=== PATIENT | female | born 1930 | race Caucasian/White ===

== ENCOUNTER → 2017-07-05 | Outpatient (CLI) | payer MEDICARE, BC, OTHER ==
--- NOTE | 2017-07-05 11:06 | RAD ---
DATE: July 05, 2017 EXAM: DIGITAL SCREEN BILAT W/CAD HISTORY: History of left breast cancer treated with lumpectomy. COMPARISON: 2014 and 2016. This study was interpreted with the benefit of Computerized Aided Detection (CAD). FINDINGS: Mammographic study is difficult to position on the left side due to a broken left arm suffered 2 months ago. The left breast is smaller due to the lumpectomy. The breast parenchyma is scattered and mildly dense. There are no dominant suspicious masses, suspicious microcalcifications or evidence of architectural distortion. IMPRESSION: No mammographic indicators for malignancy. BI-RADS CATEGORY: 2 BENIGN FINDING RECOMMENDED FOLLOW-UP: 12M 12 MONTH FOLLOW-UP PQRS compliance statement: Patient information was entered into a reminder system with a target due date July 06, 2018 for the next mammogram. Mammography is a sensitive method for finding small breast cancers, but it does not detect them all and is not a substitute for careful clinical examination. A negative mammogram does not negate a clinically suspicious finding and should not result in delay in biopsying a clinically suspicious abnormality. "Our facility is accredited by the [employer] Mammography Program." The patient's breast density may affect the ability of mammography to detect breast cancer. There are 4 categories of breast density, A, B, C and D. Breast density A means that most of the breast tissue is replaced with adipose tissue and therefore is not dense. Breast density B means that the breast tissue is mildly dense and scattered. Breast density C means that the breast tissue is heterogeneously dense. Breast density D means that the breast tissue is very dense. Breast densities especially C and D may decrease the sensitivity of mammography to detect breast cancer. Therefore, the patient may benefit from 3-D breast mammography (3D breast tomography) as a part of their screening mammogram. Insurance may or may not pay for this additional imaging. The patient's breast density based on today's mammogram is category B.
== END | disposition home or self-care (01) ==
LOC: MAMMO 09:19
PROVIDERS: ATTEND Physician Assistant Medical
DX: Z12.31 Encounter for screening mammogram for malignant neoplasm of breast (principal); Z85.3 Personal history of malignant neoplasm of breast
CPT/HCPCS: 77067

== ENCOUNTER → 2017-10-11 | Outpatient (CLI) | payer MEDICARE, BC, OTHER ==
--- NOTE | 2017-10-12 10:09 | RAD ---
Chest, 2 views, 10/11/2017: HISTORY: Cough and congestion No previous chest radiographs are available at this time for comparison purposes. The heart is mildly enlarged. A coronary artery stent is projected over the left side of the heart. The aorta is tortuous. The pulmonary vascularity is normal. There appear to be scattered parenchymal scars. There is mild streaky atelectasis/infiltrate in the left base. There is discoid atelectasis or scarring medially in the right base. A gas collection projected over the lower chest posteriorly on the lateral view raises the possibility of a small hiatal hernia. No pleural fluid is seen. There are moderate scattered degenerative changes in the spine. IMPRESSION: 1. Mild cardiomegaly and aortic atherosclerosis. 2. Mild left basilar atelectasis/infiltrate. 3. Mild right basilar discoid atelectasis and/or scarring. Electronically signed by: Heron Ahmadi MD (10/12/2017 10:06 AM) [facility]
== END | disposition home or self-care (01) ==
LOC: RAD 18:01
PROVIDERS: ATTEND Nurse Practitioner Family
DX: I70.0 Atherosclerosis of aorta (principal); J98.11 Atelectasis; Z95.5 Presence of coronary angioplasty implant and graft; Z85.3 Personal history of malignant neoplasm of breast
CPT/HCPCS: 71046

== ENCOUNTER → 2017-11-08 | Outpatient (CLI) | payer MEDICARE, BC, OTHER ==
--- NOTE | 2017-11-08 16:59 | RAD ---
Chest radiograph 11/08/2017 12:32 PM INDICATION: Pneumonia COMPARISON: Chest radiograph October 11, 2017 TECHNIQUE: Frontal and lateral views of the chest are provided. FINDINGS: The cardiomediastinal silhouette is within normal limits. There are no pleural effusions. There is no pulmonary vascular congestion. There is no pneumothorax. There is improved aeration of the left lung base. There is minimal strandy density at the left lung base suggestive of subsegmental atelectasis versus scarring. Mild pulmonary emphysema. No significant osseous abnormality is identified. IMPRESSION: COPD changes with improved aeration of the left lower lobe. Residual strandy density may represent subsegmental atelectasis versus scarring. No masslike consolidation is visualized. Electronically signed by: Ratna Galvez MD (11/08/2017 4:56 PM) [id number]
== END | disposition home or self-care (01) ==
LOC: PMG 12:18
PROVIDERS: ATTEND Nurse Practitioner Family
DX: J44.0 Chronic obstructive pulmonary disease with (acute) lower respiratory infection (principal)
CPT/HCPCS: 71046

== ENCOUNTER → 2018-04-19 | Outpatient (CLI) | payer MEDICARE, BC, OTHER ==
--- NOTE | 2018-04-19 16:40 | RAD ---
Bilateral lower extremity arterial Doppler ultrasound HISTORY: LEG PAIN, PEDAL EDEMA TECHNIQUE: Color Doppler, grayscale and duplex analysis performed of the right and left lower extremity arterial structures, from the common femoral artery through the runoff vessels. COMPARISON: None are available All velocity measurements are in centimeters per second. Right leg: Biphasic waveforms throughout. There is an increase in velocity of the proximal posterior tibial artery and 116 cm/s, compared with the popliteal artery at 54 cm/s, could indicate a proximal stenosis. No evidence of occlusive disease. Mild plaque and calcification is seen. Left leg: Biphasic waveforms throughout. No evidence of occlusion. Elevation of the posterior tibial artery peak systolic velocity, 80 proximally and 109 distally, relative to the popliteal artery velocity of 58, could indicate a stenosis. Mild calcification and plaque is seen. IMPRESSION: Atherosclerotic disease. Question is raised of stenosis at the level of the knee, bilaterally. Electronically signed by: Blake Stiles MD (04/19/2018 4:36 PM) [id number]
== END | disposition home or self-care (01) ==
LOC: US 13:48
PROVIDERS: ATTEND Physician Assistant Medical
DX: I70.202 Unspecified atherosclerosis of native arteries of extremities, left leg (principal); I70.201 Unspecified atherosclerosis of native arteries of extremities, right leg; R60.9 Edema, unspecified
CPT/HCPCS: 93925

== ENCOUNTER → 2018-07-06 | Outpatient (CLI) | payer MEDICARE, BC, OTHER ==
--- NOTE | 2018-07-07 09:49 | RAD ---
DATE: 07/06/2017 EXAM: DIGITAL SCREEN BILAT W/CAD HISTORY: Screening Mammogram COMPARISON: Mammogram 07/05/2017, 06/29/2016, 06/24/2015 This study was interpreted with the benefit of Computerized Aided Detection (CAD). The breast parenchyma shows scattered fibroglandular densities. Breast parenchyma level B. FINDINGS: Bilateral digital 2-D CC and MLO views. Limited evaluation on the cc view due to distorted breast from prior lumpectomy. No new suspicious mass, calcification or architectural distortion either breast. No significant change from prior examination. There are 2 right breast biopsy clips in similar position. 9 bilateral vascular calcifications. There are a few punctate scattered calcifications of the right breast also consider benign. IMPRESSION: No mammographic evidence of malignancy. Recommend routine screening mammogram in 12 months. BI-RADS CATEGORY: 2 BENIGN FINDING(S) RECOMMENDED FOLLOW-UP: 12M 12 MONTH FOLLOW-UP PQRS compliance statement: Patient information was entered into a reminder system with a target due date for the next mammogram. Mammography is a sensitive method for finding small breast cancers, but it does not detect them all and is not a substitute for careful clinical examination. A negative mammogram does not negate a clinically suspicious finding and should not result in delay in biopsying a clinically suspicious abnormality. "Our facility is accredited by the [employer] Mammography Program."
== END | disposition home or self-care (01) ==
LOC: MAMMO 15:00
PROVIDERS: ATTEND Physician Assistant Medical
DX: Z12.31 Encounter for screening mammogram for malignant neoplasm of breast (principal)
CPT/HCPCS: 77067

== ENCOUNTER → 2018-08-03 | Outpatient (CLI) | payer MEDICARE, BC, OTHER ==
--- NOTE | 2018-08-03 14:08 | RAD ---
LEFT BREAST SONOGRAM Indications: History of left breast cancer treated with lumpectomy in 1999. Patient has swelling in the outer left breast and axilla last 2 months. Recent negative mammogram on July 06, 2018. Findings: High-resolution sonography of the outer aspect of the left breast in the area of clinical concern as indicated by the patient was performed. No focal sonographic abnormality is seen. Sonography of the left axillary region was performed which demonstrates a normal appearing lymph node measuring 10 mm in size. IMPRESSION: No sonographic abnormality is evident. BI-RADS Category 1 negative
== END | disposition home or self-care (01) ==
LOC: US 12:49
PROVIDERS: ATTEND Physician Assistant Medical
DX: N63.21 Unspecified lump in the left breast, upper outer quadrant (principal); Z85.3 Personal history of malignant neoplasm of breast
CPT/HCPCS: 76641

== ENCOUNTER → 2019-07-18 | Outpatient (CLI) | payer MEDICARE, BC, OTHER ==
--- NOTE | 2019-07-20 11:32 | RAD ---
DATE: July 18, 2019 EXAM: DIGITAL SCREEN BILAT W/CAD HISTORY: History of left breast cancer treated with lumpectomy. COMPARISON: 2017 and 2018 This study was interpreted with the benefit of Computerized Aided Detection (CAD). FINDINGS: Breast Density: HETERO The breast parenchyma is heterogenously dense, which could reduce sensitivity of mammography. Breast parenchyma level C.. Postoperative changes of the left breast related to lumpectomy are evident. Very little left breast tissue is present. As a result, the technologist was unable to get a good CC projection. No obvious new abnormality is seen on the left side in the MLO projection. Biopsy clips are present on the right side. No new abnormality is seen on the right side. IMPRESSION: Stable mammogram. No mammographic indicators for new or recurrent malignancy. BI-RADS CATEGORY: 2 BENIGN FINDING RECOMMENDED FOLLOW-UP: 12M 12 MONTH FOLLOW-UP PQRS compliance statement: Patient information was entered into a reminder system with a target due date July 19, 2020 for the next mammogram. Mammography is a sensitive method for finding small breast cancers, but it does not detect them all and is not a substitute for careful clinical examination. A negative mammogram does not negate a clinically suspicious finding and should not result in delay in biopsying a clinically suspicious abnormality. "Our facility is accredited by the [employer] Mammography Program." The patient's breast density may affect the ability of mammography to detect breast cancer. There are 4 categories of breast density, A, B, C and D. Breast density A means that most of the breast tissue is replaced with adipose tissue and therefore is not dense. Breast density B means that the breast tissue is mildly dense and scattered. Breast density C means that the breast tissue is heterogeneously dense. Breast density D means that the breast tissue is very dense. Breast densities especially C and D may decrease the sensitivity of mammography to detect breast cancer. Therefore, the patient may benefit from 3-D breast mammography (3D breast tomography) as a part of their screening mammogram. Insurance may or may not pay for this additional imaging. The patient's breast density based on today's mammogram is category C.
== END | disposition home or self-care (01) ==
LOC: MAMMO 11:14
PROVIDERS: ATTEND Physician Assistant Medical
DX: Z12.31 Encounter for screening mammogram for malignant neoplasm of breast (principal); Z85.3 Personal history of malignant neoplasm of breast
CPT/HCPCS: 77067

== ENCOUNTER → 2020-07-24 | Outpatient (CLI) | payer MEDICARE, BC, OTHER ==
--- NOTE | 2020-07-29 08:48 | RAD ---
DATE: 07/24/2020 11:43 AM EXAM: MAMMO EDIL SCREENING BILATERAL HISTORY: 89-year-old woman presents for screening. Personal history of left lumpectomy with radiation and reconstruction in 2000. COMPARISON: 07/18/2019 Bilateral CC and MLO views of the breasts were performed. Bilateral breast tomosynthesis was performed in MLO projections. Right CC edil synthesis images also obtained but the left CC tomosynthesis view could not be obtained due to postsurgical breast tissue variation.. This study was interpreted with the benefit of Computerized Aided Detection (CAD). FINDINGS: Breast Density: SCATTERED The breast parenchyma shows scattered fibroglandular densities. Breast parenchyma level B No suspicious masses, microcalcifications or architectural distortion is present to suggest malignancy in either breast. The visualized axillae are unremarkable. IMPRESSION: No mammographic evidence of malignancy. BI-RADS CATEGORY: 1 NEGATIVE RECOMMENDED FOLLOW-UP: 12M 12 MONTH FOLLOW-UP Annual screening mammography is recommended, unless clinically indicated sooner based on symptoms or change in physical exam. PQRS compliance statement: Patient information was entered into a reminder system with a target due date for the next mammogram. Mammography is a sensitive method for finding small breast cancers, but it does not detect them all and is not a substitute for careful clinical examination. A negative mammogram does not negate a clinically suspicious finding and should not result in delay in biopsying a clinically suspicious abnormality. "Our facility is accredited by the [employer] Mammography Program."
== END ==
LOC: MAMMO 11:00
PROVIDERS: ATTEND Physician Assistant Medical
DX: Z12.31 Encounter for screening mammogram for malignant neoplasm of breast (principal)
CPT/HCPCS: 77063; 77067

== ENCOUNTER 2021-03-04 18:51 | Inpatient (IN) | payer MEDICARE, BC, OTHER ==
[~2021-03-04] VITALS: Ht 162.6 cm; Wt 67.0 kg
[2021-03-04] MEDS ORDERED: MORPHINE SULFATE 4 MG/ML DISP.SYRIN. IV ONE (19:45)
[2021-03-04] MEDS ORDERED: ONDANSETRON PF 4 MG/2 ML VIAL. IVP ONE (19:45)
[2021-03-04] MEDS ORDERED: IV DEXTROSE 5% - 0.9 % NACL 1,000 ML IV ONE (19:45)
--- NOTE | 2021-03-04 19:48 | PHYS DOC ---
Adult General Chief Complaint Chief Complaint: HIP PAIN HPI HPI Patient is an 89-year-old female who presents to the emergency department with a chief complaint of fall, at home in her closet just before coming into the emergency department after tripping over something and landing on her right hip. States it hurts, 8 out of 10, sharp in nature. Denies any other injuries. Denies any headache, change in vision, neck pain, chest pain, shortness of breath, abdominal pain, nausea, vomiting. Denies any numbness/weakness/tingling. Does endorse some mild tenderness around her bellybutton and a dry cough today. Denies any recent traumas, illnesses, fevers, cold/Covid/flu symptoms or known ill contacts. Review of Systems Review of Systems Review of systems otherwise unremarkable except noted in HPI Physical Exam Physical Exam Constitutional: Well developed, well nourished, no acute distress, non-toxic appearance. [] HENT: Normocephalic, atraumatic, bilateral external ears normal, oropharynx moist, no oral exudates, nose normal. [] Eyes: conjunctiva normal, no discharge. [] Neck: Normal range of motion, no tenderness, supple, no stridor. [] Cardiovascular:Heart rate regular rhythm, no murmur [] Lungs & Thorax: Bilateral breath sounds clear to auscultation [] Abdomen:soft, mild tenderness around umbilicus, no masses, no pulsatile masses. [] Skin: Warm, dry, no erythema, no rash. [] Back: No tenderness, no CVA tenderness. [] Extremities: Pain on range of motion of right hip with no obvious bruising, swelling or deformities, neurovascular exam intact, Neurologic: Alert and oriented X 3, normal motor function, normal sensory function, no focal deficits noted. [] Psychologic: Affect normal, judgement normal, mood normal. [] EKG EKG [] Radiology/Procedures Radiology/Procedures [] Heart Score C/O Chest Pain: No Risk Factors: Risk Factors: DM, Current or recent (<one month) smoker, HTN, HLP, family history of CAD, obesity. Risk Scores: Risk Factors: DM, Current or recent (<one month) smoker, HTN, HLP, family history of CAD, obesity. Course & Med Decision Making Course & Med Decision Making Patient is an 89-year-old female who presents with right hip pain after falling in the closet at home Vital signs notable for hypertension, and O2 sats around 88-90. Placed on the monitor with IV access established. O2 with nasal cannula placed at 2 L. Given pain and nausea medicine. Made n.p.o. Has not eaten in 8 hours. Started on IV fluid resuscitation. Laboratory analysis not concerning. CT with right-sided femoral neck fracture. Neurovascular exam intact. Pain controlled. Discussed patient with Dr. Palmer at [place] and Dr. Nolasco who both excepted to [facility] for continued evaluation and treatment. Patient and family grateful, verbalized understanding and agreed with plan of transfer and admission. Given the fact that there are no beds currently at [place], until tomorrow afternoon and Dr. Palmer said he would be able to take her to the OR until approximately 6 PM tomorrow she was admitted to [facility] for continued evaluation and treatment until bed opening at [facility] [place]. [] Dragon Disclaimer Dragon Disclaimer This electronic medical record was generated, in whole or in part, using a voice recognition dictation system. Departure Departure: Impression: Primary Impression: Fall Additional Impressions: Hip pain Cough Abdominal pain Hip fracture Disposition: 02 SHORT TERM HOSPITAL Admitting Physician: Lizbet Nolasco Condition: STABLE Referrals: BHAVANI NATHAN (PCP) Problem Qualifiers AMPARO FALL MD Mar 04, 2021 19:48
[2021-03-04 20:07] LABS: HEMATOCRIT 43.4 % (36.0-47.0); HEMOGLOBIN 14.5 g/dL (12.0-15.5); RED BLOOD COUNT 4.66 x10^6/uL (3.50-5.40); RED CELL DISTRIBUTION WIDTH 13.2 % (11.5-14.5)
--- NOTE | 2021-03-04 20:51 | RAD ---
XR CHEST 1V History: Reason: Fall, cough, low O2 / Spl. Instructions: / History: Comparison: November 08, 2017 Findings: Hyperinflation with emphysematous changes. No pleural effusion. No pneumothorax. Postop changes left axilla. Glenohumeral DJD. Remodeling of the left humeral head, unchanged. Unchanged heart size. Calci fied right upper lung pulmonary nodule, unchanged likely related to prior granulomatous disease. Impression: 1. Hyperinflation with emphysematous changes. No new consolidation. Electronically signed by: Cliff Quinteros DO (03/04/2021 8:48 PM) [facility]
--- NOTE | 2021-03-04 20:53 | RAD ---
Exam: CT of abdomen and pelvis without contrast INDICATION: Fall, umbilical pain TECHNIQUE: Sequential axial images through the abdomen and pelvis obtained without IV contrast. Sagit toney and coronal reformatted images were reconstructed from the axial data and reviewed. Exposure: One or more of the following in the visualized dose reduction techniques were utilized for this examination: 1. Automated exposure control 2. Adjustment of the MA and/or KV according to patient size 3. Use of iterative of reconstructive technique Comparisons: None FINDINGS: Heart size is normal. No pericardial effusion. Strandy opacities at dependent portion lungs likely re presenting atelectasis. No pleural effusion. Evaluation of solid organs limited secondary to noncontrast technique. Liver, spleen, pancreas, gallbladder and adrenals are unremarkable. No perinephric inflammation or hydronephrosis. Nonobstructing left renal calculi are noted. No ureter al calculi are seen. Bladder is partially distended and not well evaluated. Uterus is nonenlarged. No abnormal adnexal mas s. Moderate amount of stool is noted in the colon. Appendix is normal. No free intra-abdominal air or fl uid. No obstruction. Abdominal aorta has a normal course and caliber. No enlarged abdominal lymph nodes are identified. There is an impacted angulated right femoral neck fracture. No suspicious osseous lesions IMPRESSION: 1. Impacted angulated right femoral neck fracture. 2. Moderate-sized hiatal hernia. 3. Nonobstructing left renal calculi. 4. Moderate amount stool in the colon, correlate for constipation. Electronically signed by: Yasmin Ricardo MD (03/04/2021 8:51 PM) [facility]
[2021-03-04 21:32] LABS: CALCIUM 9.5 mg/dL (8.5-10.1); CREATININE 0.9 mg/dL (0.6-1.0); GFR 59.1; POTASSIUM 4.1 mmol/L (3.5-5.1)
--- NOTE | 2021-03-04 21:46 | RAD ---
XR HIP (WITH OR WITHOUT PELVIS) 1 VIEW History: Reason: fall, bilateral hip pain, unable to move right hip / Spl. Instructions: / History: Technique: AP view the pelvis and 2 views of bilateral hips. Comparison: February 12, 2018 Findings: Acute mildly displaced right femoral neck fracture. No dislocation. Lower lumbar spondylosis. Mild bi lateral hip DJD. Mild pubic symphysis DJD. Impression: 1. Acute mildly displaced right femoral neck fracture. Electronically signed by: Cliff Quinteros DO (03/04/2021 9:43 PM) [facility]
[2021-03-05] MEDS ORDERED: ACETAMINOPHEN 325 MG TABLET PO PRN (00:15)
[2021-03-05] MEDS ORDERED: IV DEXTROSE 5% - 0.9 % NACL 1,000 ML IV ONE (00:15)
[2021-03-05] MEDS ORDERED: ONDANSETRON PF 4 MG/2 ML VIAL. IVP PRN (00:15)
[2021-03-05] MEDS ORDERED: ACET325T9 PO (04:36)
[2021-03-05] MEDS ORDERED: CELE-20 PO (04:36)
[2021-03-05] MEDS ORDERED: TOLT4CAP PO (04:36)
[2021-03-05] MEDS ORDERED: ATOR20TA58 PO (04:36)
[2021-03-05] MEDS ORDERED: DONE5TAB7 PO (04:36)
[2021-03-05] MEDS ORDERED: ASPI-630 PO (04:36)
[2021-03-05] MEDS ORDERED: GABA-586 PO (04:36)
[2021-03-05] MEDS ORDERED: [UNRECOGNIZED DRUG - CODE] PO (04:36)
[2021-03-05] MEDS ORDERED: DOCU-109 PO (04:36)
[2021-03-05] MEDS ORDERED: CALC500T54 PO (04:36)
[2021-03-05] MEDS ORDERED: METO-239 PO (04:36)
[2021-03-05] MEDS ORDERED: CARB1TAB22 PO (04:36)
[2021-03-05] MEDS ORDERED: MULT-658 PO (04:36)
--- NOTE | 2021-03-05 05:43 | NUR ---
PT ADMITTED TO [facility] VIA EMS ACCOMPANIED BY NURSING POLARITY TESTER. PT ASSISTED X4 FROM GURNEY TO BED. PT IS ALERT TO SELF ONLY AND IS POOR HISTORIAN. HOME MEDICATION LIST RECEIVED FROM FAMILY MEMBER IN ED. MEDICATIONS ARE RECONCILED. PER SANDERS PROTOCOL, 16F SANDERS CATHETER WAS PLACED FOR UNOPERATED RIGHT HIP FRACTURE. PT TOLERATED PROCEDURE WELL. PT IS UNABLE TO EXPRESS PAIN ON NUMERIC SCALED BUT STATED "MY HIP IS VERY TENDER." PT ALSO APPEARED TENSE WHEN ADLS WHERE DONE. PRN MORPHINE GIVEN INDICATED. BED ALARM IN PLACE, WILL CONTINUE TO MONITOR.
[2021-03-05] MEDS: MORPHINE SULFATE 2 MG/ML DISP.SYRIN. IVP PRN ×2 (05:54→11:06)
[2021-03-05 06:36] VITALS: BP 143/77
--- NOTE | 2021-03-05 08:58 | HP ---
ADMIT DATE: 03/05/2021 ATTENDING PHYSICIAN: Dr. Mojica. CHIEF COMPLAINT: Right hip pain. HISTORY OF PRESENT ILLNESS: The patient is an 89-year-old female who fell at home. No loss of consciousness. She was evaluated in the ED. X-rays demonstrated an acute right femoral neck fracture, minimal displacement. Orthopedic Service was called at [place]. They did not have a bed available. She was admitted to [facility] for overnight observation, with eventual transfer to [place] the next day, which is today. She is demented and cannot give much history. She is awake. She is not in any acute respiratory distress. PAST MEDICAL HISTORY: Significant for Parkinson's disease, profound dementia, hyperlipidemia and essential hypertension. She is not on any anticoagulation. CURRENT MEDICATIONS: Include aspirin, Tylenol, Lipitor, calcium, Sinemet, Celebrex, docusate, Aricept, famotidine, Neurontin, metoprolol, multivitamin, and Detrol. ALLERGIES: She has no known drug allergies. SOCIAL HISTORY: Nonsmoker, nondrinker. FAMILY HISTORY: Unobtainable. REVIEW OF SYSTEMS: Unobtainable due to the patient's confusion. PHYSICAL EXAMINATION: GENERAL: When I saw her, this is a pleasant elderly female who is very confused. She has no idea what is going on. She looks very dazed. VITAL SIGNS: Initial vital signs showed a blood pressure of 143/77, temperature 98.5 degrees Fahrenheit, pulse is 90 and regular, oxygen saturation 92% on 4 liters nasal cannula. HEENT: Head is without trauma. Pupils are reactive. Sclerae nonicteric. Oropharynx clear. NECK: Supple. No bruits. CARDIOVASCULAR: Regular heart tones. LUNGS: Good breath sounds. ABDOMEN: Soft. No guarding or rebound tenderness. EXTREMITIES: Showed point tenderness over the right lateral hip. Wooten catheter in place. SKIN: Warm and dry. NEUROLOGIC: Profoundly confused. PERTINENT LABORATORY STUDIES: Hemoglobin is 14.5 g/dL, white count 9000. Electrolytes within normal range. Creatinine 0.9 mg/dL. Nonfasting blood sugar 146. ASSESSMENT: 1. An 89-year-old female fell at home sustaining a right femoral neck fracture. 2. Profound dementia. 3. Hypertension. 4. Parkinson's disease. PLAN: 1. Admit to the inpatient unit here. 2. N.p.o. 3. Wooten catheter in place. 4. Home meds reviewed. 5. Eventual transfer to [place] when a bed opens up for ORIF. I will try to contact the family. ARTI/DANITA DR: Christine TID: [id number] CC: MATIAS SONI
[2021-03-05 10:50] VITALS: BP 101/79
--- NOTE | 2021-03-05 11:59 | DS ---
DATE OF DISCHARGE: 03/05/2021 ATTENDING PHYSICIAN: Dr. Mojica. FINAL DISCHARGE DIAGNOSES: 1. Fall with acute fracture of the right femoral neck. 2. Profound dementia. 3. Essential hypertension. 4. Parkinson's disease. HISTORY AND PHYSICAL: The patient is an 89-year-old female who fell at home. No loss of consciousness. Workup in the ED last night showed an acute right femoral neck fracture, minimal displacement. Orthopedic Service at [place] was called. They did not have a bed available. Therefore, she was admitted to [facility] overnight with eventual transfer to [place] the next day, which is today. Dr. David has been notified and will accept the patient when a bed is available. PAST MEDICAL HISTORY: Significant for Parkinson's disease, profound dementia and hypertension. She is not on any anticoagulation. I did take the liberty of stopping her aspirin and her Celebrex. PHYSICAL EXAMINATION: Please see my dictated note. PERTINENT LABORATORY AND X-RAY STUDIES: Admission hemoglobin was 14.5 g/dL, white count was 9000. Electrolytes within normal range. Creatinine is 0.9 mg percent. Nonfasting blood sugar 146 mg/dL. X-rays of the hip and pelvis showed acute mildly displaced right femoral neck fracture. Chest x-ray showed hyperinflation with emphysematous changes, no new infiltrates or decompensation is seen. COURSE IN THE HOSPITAL: The patient was admitted. She was kept n.p.o., gentle IV hydration, pain control. She remained very confused. Arrangements were then made for the patient to be transferred by ambulance to go to [facility] for eventual open reduction and internal fixation. Her prognosis is guarded. She is a FULL CODE per advanced directives. The patient is then discharged from our hospital in stable condition with explicit drug and followup care. ARTI/DANITA DR: ARTI/lyndsey TID: [id number] CC: JOSÉ MIGUEL DAVID MD, MATIAS SONI
--- NOTE | 2021-03-05 12:17 | NUR ---
PATIENT IS IN A BED AWAKE , CONFUSED AND RESTLESS, NON COMPLIANT WITH SUPPLEMENTAL O2, KEEPS TAKING NC OFF, PULLING ON SANDERS. DR LAZO NOTIFIED, ORDER FOR ATIVAN PRN OBTAINED.
--- NOTE | 2021-03-05 13:49 | NUR ---
PATIENT IS TRANSFERRING TO [facility] FOR ORTHO CONSULT, HIGHER LEVEL OF CARE. REPORT GIVEN TO GYPSY PRADO. PATIENT'S FAMILY NOTIFIED. EMS CALLED FOR TRANSFER.
== END 2021-03-05 14:20 | disposition short-term general hospital (02) | DRG 536 ==
LOC: ER 18:51 → 1 SOUTH 03-05 00:52
PROVIDERS: ADMIT Internal Medicine; ATTEND Internal Medicine
DX: S72.001A Fracture of unspecified part of neck of right femur, initial encounter for closed fracture (principal); E78.5 Hyperlipidemia, unspecified; F02.80 Dementia in other diseases classified elsewhere, unspecified severity, without behavioral disturbance, psychotic disturbance, mood disturbance, and anxiety; G20 Parkinson's disease; I10 Essential (primary) hypertension; W01.0XXA Fall on same level from slipping, tripping and stumbling without subsequent striking against object, initial encounter; Z20.822 Contact with and (suspected) exposure to COVID-19; Y92.009 Unspecified place in unspecified non-institutional (private) residence as the place of occurrence of the external cause; Y93.89 Activity, other specified; Y99.8 Other external cause status
CPT/HCPCS: 36415; 71045; 73521; 74176; 80048; 85027; 96361; 96374; J2270; J2405; J7042; U0003; 99285-25

== ENCOUNTER 2021-04-23 11:00 | Emergency (ER) | payer MEDICARE, BC, OTHER ==
[~2021-04-23] VITALS: Ht 162.6 cm; Wt 73.1 kg
[~2021-04-23 11:00] MED LIST: ACET325T9 PO; ASPI-630 PO; ATOR20TA58 PO; CALC500T54 PO; CARB1TAB22 PO; CELE-20 PO; DOCU-109 PO; DONE5TAB7 PO; GABA-586 PO; METO-239 PO; MULT-658 PO; TOLT4CAP PO; [UNRECOGNIZED DRUG - CODE] PO
--- NOTE | 2021-04-23 11:23 | PHYS DOC ---
Past History Additional Past Medical Histor: CANCER-breast Past Surgical History: Knee Replacement, Other Additional Past Surgical Histo: right wrist, partial knee replacement Alcohol Use: None Adult General Chief Complaint Chief Complaint: HYPOTENSION HPI HPI Patient is an 89-year-old female presenting via POV for hypotension. Patient was at home participating in home PT status post recent hip surgery when she was found to be little more lethargic than usual in her wheelchair without any recent falls or trauma. Physical therapist checked blood pressure several times without any readings greater than 70 systolic. Patient lives at home with granddaughter who provides [id number] care in addition to supplemental home health and physical therapist. Joint decision among all to call primary care physician to discuss what to do as patient's blood pressure did not increase with attempted activity and so, it was advised she present to our ER for evaluation. On arrival, patient has no complaints. She has no significant major changes in health or medication recently. She has no lightheadedness, dizziness, fever, chest pain, ripping or tearing in torso, shortness of breath, abdominal pain, nausea vomit diarrhea, dysuria or other concerning symptoms Review of Systems Review of Systems Fourteen body systems of review of systems have been reviewed. See HPI for pertinent positives and negative responses, other olmedo all other systems are negative, non-pertinent or non-contributory Allergies Allergies Allergies Coded Allergies Type Severity Reaction Last Updated Verified No Known Drug Allergies 04/23/21 No Physical Exam Physical Exam Constitutional: Well developed, well nourished, no acute distress, non-toxic shine earance. HENT: Normocephalic, atraumatic, bilateral external ears normal, oropharynx moist, no oral exudates, nose normal. Eyes: PERRLA, EOMI, conjunctiva normal, no discharge. Neck: Normal range of motion, no tenderness, supple, no stridor. Cardiovascular: Heart rate regular, sinus rhythm, no murmurs rubs or gallops Lungs & Thorax: Bilateral breath sounds clear to auscultation Abdomen: Bowel sounds normal, soft, no tenderness, no masses, no pulsatile masses. Nonsurgical abdomen, no peritoneal signs Skin: Warm, dry, no erythema, no rash. Back: No tenderness, no CVA tenderness. Extremities: No tenderness, no cyanosis, no clubbing, ROM intact, no edema. Neurologic: Alert and oriented X 3, grossly normal motor & sensory function, no focal deficits noted. Psychologic: Affect normal, judgement normal, mood normal. Current Patient Data Vital Signs Vital Signs Date Time Temp Pulse Resp B/P (MAP) Pulse Ox O2 Delivery O2 Flow Rate FiO2 04/23/21 11:11 97.7 63 22 169/85 (113) 95 Room Air EKG EKG EKG ordered and interpreted by myself at 1151 as sinus rhythm at 60 bpm, unremarkable intervals, left axis deviation, no obvious ischemic findings, no STEMI Radiology/Procedures Radiology/Procedures EXAM: Chest, single view. HISTORY: Hypotension. COMPARISON: 03/04/2021 FINDINGS: A frontal view of the chest is obtained. There is no infiltrate, pleural effusion or pneumothorax. The heart is normal in size. There is a coronary artery stent. There are left axillary clips. There is a chronic fracture deformity involving the proximal left humerus. IMPRESSION: No acute pulmonary finding. Electronically signed by: Marilee Herzog MD (04/23/2021 11:59 AM) [id number] Heart Score C/O Chest Pain: No HEART Score for Chest Pain: HEART Score for Chest Pain Response (Comments) Value History Slighlty/Non-Suspicious 0 ECG Normal 0 Age > 65 2 Risk Factors 1 or 2 Risk Factors 1 Troponin < Normal Limit 0 Total 3 Risk Factors: Risk Factors: DM, Current or recent (<one month) smoker, HTN, HLP, family history of CAD, obesity. Risk Scores: Risk Factors: DM, Current or recent (<one month) smoker, HTN, HLP, family history of CAD, obesity. Course & Med Decision Making Course & Med Decision Making Airway patent, breathing unlabored, IV access and vitals obtained concerning for slight hypertension HPI physical exam and comprehensive ER work-up obtained and grossly nonconcerning Patient's blood pressure monitored throughout entirety of ER visit and hypertensive throughout. I disclosed all findings with patient and daughter at bedside with good understanding by both, no indication for any further emergent or surgical intervention or need for hospital transfer Patient has follow-up later today with outpatient primary care physician, I feel this is appropriate to review recent episode of hypotension and care going forward. Strict return precautions were discussed with patient and daughter at bedside with good understanding by both. All questions and concerns addressed prior to ER departure Dragon Disclaimer Dragon Disclaimer This electronic medical record was generated, in whole or in part, using a voice recognition dictation system. Departure Departure: Impression: Primary Impression: Hypotension Disposition: HOME / SELF CARE / HOMELESS Condition: STABLE Referrals: BHAVANI NATHAN (PCP) Additional Instructions: As discussed prior to your departure, your vitals, physical exam and comprehensive ER work-up were nonconcerning for any emergent or surgical issues. Your blood pressure remained great and borderline hypertensive throughout entirety of ER visit. It is unknown what the etiology of your hypotension was but at present, there is little indication for further diagnostic work-up or need for hospitalization. As disclosed prior to departure, please contact your primary care provider to review ER visit today and need for close outpatient follow-up. If any concerning signs or symptoms present prior to outpatient follow-up please do not hesitate to come back for repeat evaluation. It was a pleasure to take care of you and I wish you the best going forward SEE ROSS DO Apr 23, 2021 11:23
--- NOTE | 2021-04-23 11:56 | EKG ---
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
--- NOTE | 2021-04-23 12:02 | RAD ---
EXAM: Chest, single view. HISTORY: Hypotension. COMPARISON: 03/04/2021 FINDINGS: A frontal view of the chest is obtained. There is no infiltrate, pleural effusion or pneumo thorax. The heart is normal in size. There is a coronary artery stent. There are left axillary clips. There is a chronic fracture deformity involving the proximal left humerus. IMPRESSION: No acute pulmonary finding. Electronically signed by: Marilee Herzog MD (04/23/2021 11:59 AM) [id number]
[2021-04-23 12:08] LABS: BASO % 1 % (0-3); EOS # 0.1 x10^3/uL (0.0-0.7); EOS % 2 % (0-3); HEMATOCRIT 38.6 % (36.0-47.0); HEMOGLOBIN 12.6 g/dL (12.0-15.5); LYMPH # 1.4 x10^3/uL (1.0-4.8); LYMPH % 18 % (24-48); MEAN CORPUSCULAR HEMOGLOBIN 30 pg (25-35); MEAN CORPUSCULAR HGB CONC 33 g/dL (31-37); MEAN CORPUSCULAR VOLUME 92 fL (79-100); MONO # 1.1 x10^3/uL (0.0-1.1); MONO % 15 % (0-9); NEUT # 4.8 x10^3uL (1.8-7.7); NEUT % 65 % (31-73); PLATELET COUNT 198 x10^3/uL (140-400); RED BLOOD COUNT 4.17 x10^6/uL (3.50-5.40); RED CELL DISTRIBUTION WIDTH 14.6 % (11.5-14.5); WHITE BLOOD COUNT 7.4 x10^3/uL (4.0-11.0)
[2021-04-23 12:19] LABS: CALCIUM 9.7 mg/dL (8.5-10.1); CREATININE 1.1 mg/dL (0.6-1.0); GFR 46.8; POTASSIUM 4.6 mmol/L (3.5-5.1)
[2021-04-23 13:09] VITALS: BP 194/96
== END 2021-04-23 13:15 | disposition home or self-care (01) ==
LOC: ER 11:00
DX: I95.9 Hypotension, unspecified (principal)
CPT/HCPCS: 36415; 71045; 80048; 84484; 85025; 93005; 99285

== ENCOUNTER → 2021-05-23 | Outpatient (CLI) | payer MEDICARE, BC, OTHER ==
[2021-04-23 13:09] VITALS: BP 194/96
--- NOTE | 2021-05-23 16:56 | RAD ---
XR BILATERAL HIP (WITH OR WITHOUT PELVIS) 2 VIEWS_RIGHT History: Reason: RIGHT HIP PAIN, REPLACEMENT / Spl. Instructions: / History: Technique: AP views of the pelvis. Additional views of the right hip. Comparison: March 04, 2021 Findings: Interval right hip arthroplasty. Mild heterotopic ossification adjacent to the right hip. No dislocat ion. Moderate left hip DJD. Lower lumbar spondylosis. Mild bilateral sacroiliac DJD. Impression: 1. Interval right hip arthroplasty. No hardware complications. 2. Moderate left hip DJD. Electronically signed by: Cliff Quinteros DO (05/23/2021 4:54 PM) [id number]
== END ==
LOC: RAD 10:43
PROVIDERS: ATTEND Physician Assistant
DX: M25.551 Pain in right hip (principal); M16.12 Unilateral primary osteoarthritis, left hip; M47.816 Spondylosis without myelopathy or radiculopathy, lumbar region; M53.3 Sacrococcygeal disorders, not elsewhere classified; Z96.641 Presence of right artificial hip joint
CPT/HCPCS: 73502

== ENCOUNTER → 2021-07-28 | Outpatient (CLI) | payer MEDICARE, BC, OTHER ==
--- NOTE | 2021-07-28 12:18 | RAD ---
INDICATION : Routine Screening. COMPARISON: Multiple priors including June 2018 TECHNIQUE: Standard mammogram screening views of the bilateral breasts were obtained. CAD was utilize d. FINDINGS: The breasts are scattered density. No definite suspicious mass. Postoperative changes to left breast again seen. IMPRESSION: BI-RADS Category 2: Benign findings. Recommend repeat screening examination in one year. The patient was placed into the recall system with a suggested recall date for follow up imaging. Mammography is the most sensitive method for finding small breast cancers, but it does not detect the m all and is not a substitute for careful clinical examination. A negative mammogram does not negate a clinically suspicious finding and should not result in delay in biopsying a clinically suspicious abnormality. Electronically signed by: Sonny Dixon MD (07/28/2021 12:16 PM) [id number]
== END ==
LOC: MAMMO 08:56
PROVIDERS: ATTEND Physician Assistant Medical
DX: Z12.31 Encounter for screening mammogram for malignant neoplasm of breast (principal)
CPT/HCPCS: 77067

== ENCOUNTER → 2021-09-10 | Outpatient (CLI) | payer MEDICARE, BC, OTHER ==
[2021-09-10 12:27] LABS: CLARITY,URINE CLEAR; COLOR,URINE YELLOW; GLUCOSE,URINE NEG (NEG)
[2021-09-10 12:28] LABS: BACTERIA,URINE FEW /HPF (0-FEW); NITRITE,URINE NEG (NEG); RBC,URINE 0 /HPF (0-2); SQUAMOUS EPITHELIAL CELL,UR MOD /LPF; UROBILINOGEN,URINE 0.2 mg/dL (0.2 mg/dL)
== END ==
LOC: LAB 09:30
PROVIDERS: ATTEND Physician Assistant Medical
DX: N39.0 Urinary tract infection, site not specified (principal)
CPT/HCPCS: 81001